=== PATIENT | male | born 1990 | race Two or more races ===

== ENCOUNTER 2025-05-17 05:34 | Emergency (ER) | payer SELFPAY ==
[2025-05-17 05:35] VITALS: BMI 32.0
[2025-05-17 05:41] VITALS: BP 117/75; PULSE 86; RESP 19; TEMP 36.4; O2SAT 99
--- NOTE | 2025-05-17 06:22 | PD.EDABDPN ---
ED Abdominal Pain RME/HPI General Chief Complaint: Abdominal Pain Stated complaint: ABD PAIN Time seen by provider: 05/17/25 06:16 Arrival date/time: 05/17/25 05:34 34-year-old male presents to the emergency department today patient presents prior to my arrival patient reports initially he had abdominal burning sensation patient reports the symptoms have completely resolved patient reports no chest pain no shortness of breath no abdominal pain at this time patient reports that he would like to go home and does not want any testing Limitations: no limitations Related Data Previous Rx's ?Medication ?Instructions ?Recorded famotidine 40 mg tablet (Pepcid) 40 mg PO .q bedtime #30 tabs 03/12/23 omeprazole 20 mg tablet,delayed 20 mg PO QDAY #30 tabs 03/12/23 release famotidine 20 mg tablet (Pepcid) 20 mg PO QDAY PRN pain #30 tabs 05/17/25 omeprazole 20 mg capsule,delayed 20 mg PO QDAY 14 days #14 caps 05/17/25 release Allergies Allergy/AdvReac Type Severity Reaction Status Date / Time No Known Allergies Allergy Verified 05/17/25 05:36 Review of Systems Review of Systems Systems Reviewed: All systems reviewed, normal except as documented Constitutional Constitutional: Reports system reviewed and no additional complaints, except as documented, Denies fever(s) and Denies headache(s) Eyes Eyes: Reports system reviewed and no additional complaints, except as documented and Denies blurry vision ENT Ears, Nose, Mouth, and Throat: Reports system reviewed and no additional complaints, except as documented, Denies headache(s), Denies nasal congestion and Denies nasal discharge Cardiovascular Cardiovascular: Reports system reviewed and no additional complaints, except as documented, Denies chest pain and Denies dyspnea Respiratory Respiratory: Reports system reviewed and no additional complaints, except as documented, Denies chest congestion, Denies cough and Denies dyspnea Gastrointestinal Gastrointestinal: Reports system reviewed and no additional complaints, except as documented and Reports abdominal pain Integumentary/Breasts Skin/Breast: Reports system reviewed and no additional complaints, except as documented and Denies rash Neurologic Neurologic: Reports system reviewed and no additional complaints, except as documented, Reports as per HPI and Denies headache(s) Past Medical History Past Medical History NEUROLOGIC: Negative Neurological Disorders ED Exam General Limitations: Present no limitations General appearance: Present alert and in no apparent distress Head Head exam: Present atraumatic, normocephalic and normal inspection Eye Eye exam: Present normal appearance, PERRL and EOMI; Absent conjunctival injection ENT ENT exam: Present normal exam, normal oropharynx and mucous membranes moist Neck Neck exam: Present normal inspection, full ROM and trachea midline Chest Chest inspection: Present normal inspection and symmetric chest wall rise Respiratory Respiratory exam: Present normal lung sounds bilaterally; Absent respiratory distress or wheezes Cardiovascular Cardiovascular exam: Present regular rate, normal rhythm and normal heart sounds; Absent bradycardia, tachycardia or irregular rhythm Abdominal Exam Abdominal exam: Present soft and normal bowel sounds; Absent distention, tenderness, guarding, rebound, rigidity, diminished bowel sounds, hyperactive bowel sounds, hypoactive bowel sounds, organomegaly, Dao's sign, Rovsing's sign or tenderness at McBurney's Point Abdominal tenderness: Absent RUQ or RLQ Extremities Exam Extremities exam: Present normal inspection and full ROM Back Exam Back exam: Present normal inspection and full ROM Neurological Exam Neurological exam: Present alert, oriented X3 and CN II-XII intact Psychiatric Psychiatric exam: Present normal affect and normal mood Skin Skin exam: Present warm, dry, intact and normal color Course Quality Measures none Vital Signs Vital signs: Vital Signs Temperature 97.6 F 05/17/25 05:41 Pulse Rate 86 05/17/25 05:41 Respiratory Rate 19 05/17/25 05:41 Blood Pressure 117/75 05/17/25 05:41 Pulse Oximetry (%) 99 05/17/25 05:41 Oxygen Delivery Method Room Air 05/17/25 05:41 O2 saturation 99% room air within normal limits Abdominal Pain MDM MDM Narrative MDM Narrative:: 34-year-old male presents to the emergency department today patient presents prior to my arrival patient reports initially he had abdominal burning sensation patient reports the symptoms have completely resolved patient reports no chest pain no shortness of breath no abdominal pain at this time patient reports that he would like to go home and does not want any testing Most likely symptoms are secondary to acid reflux patient does report he ate pizza before going to bed. I did explain to the patient as he is here which is some lab work and imaging patient declined I asked patient once again would like to do lab work and imaging patient refused lab work and imaging Patient discharged home in no distress instructed the patient that if symptoms persist or worsen he must return for reevaluation Patient data External records reviewed:: [facility] previous records Clinical information provided by:: patient Social determinants that could affect healthcare access:: none Patient has the following chronic illnesses:: None How is presenting disease/condition affected by chronic disease/condition?: no chronic disease Evaluation data The following diagnostics were reviewed and interpreted by me:: other (specify) Lab and/or radiology exams considered but not ordered:: Considered not ordered Interpretation Summary: N/A Medications / Prescriptions Medications or Prescriptions considered but not ordered:: No med Medication administrations:: No meds Consultations Consultation(s) initiated? (list below): No Diagnosis Differential diagnosis abdominal pain: abdominal pain, acute appendicitis, pancreatitis and small bowel obstruction Most likely diagnosis given after review of the tests above:: Abdominal pain Admission Indicated Admission indicated?: not indicated Admission Request Was there a request for admission?: No Disposition Plan Disposition Plan: Discharge Discharge Attestation Discharge Attestation: The patient and all family members were given an opportunity to ask questions and understood the discharge instructions. Discharge instructions specifically effects, indications for sooner follow up or return to the emergency department, and the expected course of current diagnosis. Patient condition: Stable Discharge Plan Plan Patient Disposition: HOME (Self Care) Discharge Disposition comment: Stable Prescriptions/Referrals Prescriptions/Med Rec: New famotidine [Pepcid] 20 mg tablet 20 mg PO QDAY PRN (Reason: pain ) Qty: 30 0RF omeprazole 20 mg capsule,delayed release(DR/EC) 20 mg PO QDAY 14 Days Qty: 14 0RF No Action omeprazole 20 mg tablet,delayed release (DR/EC) 20 mg PO QDAY Qty: 30 0RF famotidine [Pepcid] 40 mg tablet 40 mg PO .q bedtime Qty: 30 0RF Problem List Clinical Impression: Abdominal pain, Acid reflux Patient/Caregiver Discharge Instructions Education Materials: Abdominal Pain Additional Instructions: If your symptoms worsen for any reason you must return to the ER immediately for further evaluation Print Language: Croatian Stand Alone Forms: Valeria Award Info., Patient Portal Info Letter PA/LUNCH TRUCK DRIVER Supervising Physician PA/LUNCH TRUCK DRIVER Supervising Physician: Dr. [email or web address]
== END 2025-05-17 06:38 | disposition home or self-care (01) ==
LOC: SERX 06:32
PROVIDERS: Emergency Provider Family Medicine; PCP Family Medicine
DX: K21.9 Gastro-esophageal reflux disease without esophagitis (principal)
CPT/HCPCS: 99281